=== PATIENT | female | born 1985 | race Hispanic/Latino ===

== ENCOUNTER 2019-02-14 09:33 | Emergency (ER) | payer SELFPAY ==
[~2019-02-14] VITALS: Ht 160 cm; Wt 71.2 kg
[2019-02-14 10:43] LABS: BILIRUBIN,URINE NEGATIVE (NEGATIVE); CLARITY,URINE CLEAR (CLEAR); COLOR,URINE YELLOW (YELLOW); KETONES,URINE NEGATIVE (NEGATIVE); LEUKOCYTE ESTERASE ,URINE NEGATIVE (NEGATIVE); NITRITE,URINE NEGATIVE (NEGATIVE); PREGNANCY TEST, URINE NEGATIVE (NEGATIVE); PROTEIN,URINE DIPSTICK NEGATIVE (NEGATIVE); URINE UROBILINOGEN 0.2 mg/dL (0.2 - 1)
[2019-02-14 12:30] LABS: EPITHELIAL CELLS,URINE RARE /LPF
--- NOTE | 2019-02-14 12:30 | NUR ---
pt with c/o low back pain/headache. dr. ray informed
[2019-02-14] MEDS ORDERED: KETOROLAC TROMETHAMINE 60 MG/2 ML VIAL IM NR (12:45)
[2019-02-14] MEDS ORDERED: DIAZEPAM 5 MG TAB PO NR (12:45)
--- NOTE | 2019-02-14 13:06 | Diagnostic Imaging Report ---
Exam: Lumbosacral spine series; 5 views and sacrococcygeal series; 3 views History: Pain; status post fall Comparison: None available Findings: There is no evidence of a fracture or dislocation. No spondylolysis or spondylolisthesis is seen. IUD is present within the pelvis and there are bilateral tubal ligation clips noted. Views of the sacrococcygeal region show no evidence of a fracture. Impression: Normal studies. Signed by: Dr. Jerrod Hathaway DO on 02/14/2019 1:02 PM
[2019-02-14] MEDS ORDERED: NAPROXEN250 MG PO (13:25)
[2019-02-14] MEDS ORDERED: ROBAXIN-750750 MG PO (13:25)
[2019-02-14 13:28] VITALS: BP 110/56
== END 2019-02-14 13:40 | disposition home or self-care (01) ==
LOC: ER 09:33
DX: M54.5 Low back pain (principal); S39.012A Strain of muscle, fascia and tendon of lower back, initial encounter; Y93.41 Activity, dancing; Y92.838 Other recreation area as the place of occurrence of the external cause
CPT/HCPCS: 72110; 72220; 81001; 81025; 99284; J1885